=== PATIENT | female | born 1990 | race African-American/Black ===

== ENCOUNTER 2019-08-14 13:49 | Inpatient (IN) | payer SELFPAY ==
[~2019-08-14] VITALS: Ht 172.7 cm; Wt 60.9 kg
[2019-08-14] MEDS ORDERED: IV NORMAL SALINE 1,000ML 1,000 ML IV ONE (14:15)
[2019-08-14] MEDS ORDERED: ACETAMINOPHEN 500 MG TABLET PO ONE (14:30)
--- NOTE | 2019-08-14 14:31 | PHYS DOC ---
Past History Past Medical History: No Pertinent History Past Surgical History: No Surgical History Smoking: Cigarettes Alcohol Use: None Drug Use: None Adult General Chief Complaint Chief Complaint: FLANK PAIN HPI HPI Patient is a 29-year-old female with right flank pain and fever that started yesterday. No relief with home treatment. Discomfort has been moderate in intensity but getting worse over time. Patient denies any dysuria or hematuria, no increased urgency or frequency. No sick contacts, no nausea or vomiting or diarrhea. No increased discomfort with movement. No vaginal bleeding or discharge.[] Review of Systems Review of Systems Constitutional: Denies fever or chills [] Eyes: Denies change in visual acuity, redness, or eye pain [] HENT: Denies nasal congestion or sore throat [] Respiratory: Denies cough or shortness of breath [] Cardiovascular: No chest pain or palpitations[] GI: Denies abdominal pain, nausea, vomiting, bloody stools or diarrhea [] : Denies dysuria or hematuria [] Musculoskeletal: See history of present illness[] Integument: Denies rash or skin lesions [] Neurologic: Denies headache, focal weakness or sensory changes [] Endocrine: Denies polyuria or polydipsia [] All other systems were reviewed and found to be within normal limits, except as documented in this note. Current Medications Current Medications Current Medications Medications (Trade) Dose Ordered Sig/Saroj Start Time Stop Time Status Last Admin Dose Admin Acetaminophen (Tylenol) 500 mg 1X ONCE 08/14/19 14:30 08/14/19 14:31 Sodium Chloride 1,000 ml @ 1,000 mls/hr 1X ONCE 08/14/19 14:15 08/14/19 15:14 Allergies Allergies Allergies Coded Allergies Type Severity Reaction Last Updated Verified No Known Drug Allergies 08/14/19 No Physical Exam Physical Exam Constitutional: Well developed, well nourished, no acute distress, non-toxic appearance. [] HENT: Normocephalic, atraumatic, bilateral external ears normal, oropharynx moist, no oral exudates, nose normal. [] Eyes: PERRLA, EOMI, conjunctiva normal, no discharge. [] Neck: Normal range of motion, no tenderness, supple, no stridor. [] Cardiovascular:Heart rate is tachycardic with a regular rhythm, no murmur [] Lungs & Thorax: Bilateral breath sounds clear to auscultation [] Abdomen: Bowel sounds normal, soft, no tenderness, no masses, able to sit up and lie back without any difficulty, no rebound, no guarding, no rigidity, no pulsatile masses. [] Skin: Warm, dry, no erythema, no rash. [] Back: No tenderness, I'll write CVA tenderness. [] Extremities: No tenderness, no cyanosis, no clubbing, ROM intact, no edema. [] Neurologic: Alert and oriented X 3, normal motor function, normal sensory function, no focal deficits noted. [] Psychologic: Affect normal, judgement normal, mood normal. [] EKG EKG [] Radiology/Procedures Radiology/Procedures PROCEDURE: CT ABDOMEN PELVIS WO CONTRAST Examination: CT of the abdomen pelvis without contrast HISTORY: History of right flank pain COMPARISON: None available TECHNIQUE: Axial CT images of the abdomen pelvis were performed without contrast. Coronal and sagittal reformats are performed. Exposure: One or more of the following individualized dose reduction techniques were utilized for this examination: 1. Automated exposure control 2. Adjustment of the mA and/or kV according to patient size 3. Use of iterative reconstruction technique FINDINGS: The bibasilar lungs are clear. No evidence of free air identified in the abdomen. The evaluation of the solid organs is limited due to lack of IV contrast. The evaluation of bowel is limited due to lack of oral contrast. The visualized noncontrasted liver, spleen, adrenals grossly appears unremarkable. The gallbladder is mildly distended. The stomach is mildly distended. The small bowel is nondilated. The appendix is normal. Feces and gas noted in the colon. There is mild fat stranding identified about the right kidney and the right ureter with mild prominent right renal pelvis likely mild hydronephrosis. Obvious radiopaque calculus is not evident. Evaluation of the right ureter is limited due to bowel in the region and due to pelvic phleboliths. Urinary bladder is mildly distended No evidence of lytic bony destructive lesion IMPRESSION: 1. Mild fat stranding identified about the right kidney and the right ureter with probable mild hydronephrosis could be secondary to pyelonephritis. Correlate with lab values. A radiopaque calculus is not clearly evident however evaluation limited due to bowel and due to calcified pelvic phleboliths.[] Course & Med Decision Making Course & Med Decision Making Pertinent Labs and Imaging studies reviewed. (See chart for details) ED course: Patient arrived, was placed in bed, and tolerated exam well. Patient was given IV fluids and antipyretics initially, and her temperature and heart rate in increased despite these interventions. IV antibiotics were started, consultation was made with the hospitalist service. A CT scan was obtained to ensure there was no infected stone. She was admitted in improved condition. Findings were discussed with the patient. All questions were answered. Medical decision making: Patient appears to have pyelonephritis. No evidence of an obstructing stone. No evidence of renal failure. She is being admitted for further evaluation and treatment.[] Dragon Disclaimer Dragon Disclaimer This electronic medical record was generated, in whole or in part, using a voice recognition dictation system. Departure Departure: Impression: Primary Impression: Pyelonephritis of right kidney Disposition: ADMITTED INPATIENT Admitting Physician: Preet Keith Condition: IMPROVED Referrals: [facility] (PCP) ELIUD STEWART DO Aug 14, 2019 14:31
[2019-08-14 14:43] LABS: BASO # 0.1 x10^3/uL (0.0-0.2); BASO % 1 % (0-3); EOS % 0 % (0-3); HEMATOCRIT 43.1 % (36.0-47.0); HEMOGLOBIN 14.4 g/dL (12.0-15.5); LYMPH # 1.7 x10^3/uL (1.0-4.8); LYMPH % 9 % (24-48); MEAN CORPUSCULAR HEMOGLOBIN 28 pg (25-35); MEAN CORPUSCULAR HGB CONC 33 g/dL (31-37); MEAN CORPUSCULAR VOLUME 85 fL (79-100); MONO # 1.7 x10^3/uL (0.0-1.1); MONO % 9 % (0-9); NEUT # 15.5 x10^3uL (1.8-7.7); NEUT % 82 % (31-73); PLATELET COUNT 267 x10^3/uL (140-400); RED BLOOD COUNT 5.05 x10^6/uL (3.50-5.40); RED CELL DISTRIBUTION WIDTH 16.3 % (11.5-14.5)
[2019-08-14 14:53] LABS: CLARITY,URINE CLOUDY; COLOR,URINE YELLOW
[2019-08-14 14:54] LABS: ALBUMIN 3.8 g/dL (3.4-5.0); ALBUMIN/GLOBULIN RATIO 0.8 (1.0-1.7); CALCIUM 9.4 mg/dL (8.5-10.1); GFR 79.9; TOTAL BILIRUBIN 0.7 mg/dL (0.2-1.0); TOTAL PROTEIN 8.5 g/dL (6.4-8.2)
[2019-08-14 14:54] LABS: BACTERIA,URINE MANY /HPF (0-FEW); BILIRUBIN,URINE NEG (NEG); GLUCOSE,URINE NEG (NEG); NITRITE,URINE POS (NEG); SQUAMOUS EPITHELIAL CELL,UR MANY /LPF; UROBILINOGEN,URINE 0.2 mg/dL (0.2 mg/dL); WBC,URINE >40 /HPF (0-4)
[2019-08-14] MEDS ORDERED: cefTRIAXone SODIUM 1 GM VIAL ONE (15:28)
[2019-08-14] MEDS ORDERED: IV NORMAL SALINE 50ML 50 ML ONE (15:28)
[2019-08-14] MEDS ORDERED: KETOROLAC 15 MG/ML VIAL. IV ONE (16:00)
--- NOTE | 2019-08-14 16:18 | RAD ---
Examination: CT of the abdomen pelvis without contrast HISTORY: History of right flank pain COMPARISON: None available TECHNIQUE: Axial CT images of the abdomen pelvis were performed without contrast. Coronal and sagittal reformats are performed. Exposure: One or more of the following individualized dose reduction techniques were utilized for this examination: 1. Automated exposure control 2. Adjustment of the mA and/or kV according to patient size 3. Use of iterative reconstruction technique FINDINGS: The bibasilar lungs are clear. No evidence of free air identified in the abdomen. The evaluation of the solid organs is limited due to lack of IV contrast. The evaluation of bowel is limited due to lack of oral contrast. The visualized noncontrasted liver, spleen, adrenals grossly appears unremarkable. The gallbladder is mildly distended. The stomach is mildly distended. The small bowel is nondilated. The appendix is normal. Feces and gas noted in the colon. There is mild fat stranding identified about the right kidney and the right ureter with mild prominent right renal pelvis likely mild hydronephrosis. Obvious radiopaque calculus is not evident. Evaluation of the right ureter is limited due to bowel in the region and due to pelvic phleboliths. Urinary bladder is mildly distended No evidence of lytic bony destructive lesion IMPRESSION: 1. Mild fat stranding identified about the right kidney and the right ureter with probable mild hydronephrosis could be secondary to pyelonephritis. Correlate with lab values. A radiopaque calculus is not clearly evident however evaluation limited due to bowel and due to calcified pelvic phleboliths. Electronically signed by: Ramos Meyesr MD (08/14/2019 4:15 PM) [place] [id number]
[2019-08-14] MEDS: IV NORMAL SALINE 1,000ML 1,000 ML IV SCH (16:30)
[2019-08-14] MEDS ORDERED: ONDANSETRON PF 4 MG/2 ML VIAL. IV PRN (17:00)
[2019-08-14 17:57] VITALS: BP 100/65
--- NOTE | 2019-08-14 18:12 | HP ---
ADMIT DATE: 08/14/2019 HISTORY OF PRESENT ILLNESS: The patient is a 29-year-old female patient who came to the Emergency Room complaining of fever and right flank pain that started yesterday. The discomfort has been moderate in intensity, but getting worse over time. Denied any dysuria, hematuria, frequency or urgency. When she arrived to the Emergency Room, she was febrile with temperature of 102, has risen further to 103. Lab work showed that he has leukocytosis with a white cell count of 19,000. She has hyponatremia and her lactic acid was only 1.4; however, urinalysis showed the urine was yellow, cloudy. There was more than 40 wbc's and too many bacteria and therefore has had a CT scan of the abdomen and pelvis, which basically showed mild fat stranding identified about the right kidney and right ureter with probable mild hydronephrosis, could be secondary to pyelonephritis. Radiopaque calculus is not clearly evident; however, evaluation is limited due to bowel and due to calcified pelvic phleboliths. The patient was treated with IV fluid as well as IV ceftriaxone and was admitted to continue with the IV fluid, IV antibiotic and for pain management. PAST MEDICAL HISTORY: Unremarkable. PAST SURGICAL HISTORY: Unremarkable. She apparently has an episode of pyelonephritis about 2 years ago that required admission to the hospital; however, she has no history of nephrolithiasis. ALLERGIES: She has no known drug allergies. MEDICATIONS: She is currently on no medication by prescription otherwise. FAMILY HISTORY: She has 3 sisters who are older and all healthy. Father still alive and healthy. Mother at age of 43 but does not know the cause of her . SOCIAL HISTORY: She is , has 1 son. She smokes a pack a day, does not drink alcohol or use recreational drugs. Currently unemployed. REVIEW OF SYSTEMS: Denied any blurring of vision, cataract, glaucoma or macular degeneration. Denied any earache, tinnitus or sensorineural deafness. Denied any nosebleeds, stuffy nose or postnasal drip. Denied any sore throat, sore tongue, toothache, hoarseness of voice or difficulty swallowing. Denied any nausea, vomiting, diarrhea or constipation. Denied any hematemesis, melena or hematochezia. Denied any dysuria, frequency or hematuria. Denied any chest pain, shortness of breath, orthopnea, paroxysmal nocturnal dyspnea. Denied any cough, phlegm or hemoptysis. PHYSICAL EXAMINATION: GENERAL: On arrival to the Emergency Room, she looked well and was clearly in no apparent respiratory distress. No pallor, jaundice, cyanosis, or thyromegaly. No jugular venous distension. No lower limb edema. VITAL SIGNS: Her heart rate was 119, blood pressure was 102/54, temperature was 103, respiratory rate was 16, and oxygen saturation 100% on room air. HEAD, EYES, EARS, NOSE AND THROAT: Showed normocephalic, atraumatic. NECK: Supple. HEART: Showed normal first and second heart sounds. No gallop, rub or murmur. CHEST: Clear to auscultation. No crepitation or rhonchi. ABDOMEN: Distended, soft, nontender. No guarding or rigidity. No organomegaly. All hernial orifice intact. Bowel sounds normal. There is slight tenderness mostly in the costophrenic angle on the right side. NEUROLOGIC: She is awake, alert, responding appropriately. All cranial nerves intact. EXTREMITIES: She moves extremities without difficulty. She ambulates without assistance or assistive devices. LABORATORY DATA: Her white cell count was 19,000, hemoglobin 14.4, hematocrit 43, MCV 85, platelet count 267,000 with manual differential of 82% polymorphs, 9% lymphocytes and 9% monocytes. Her chemistry showed a serum sodium 130, potassium 4, chloride 92, bicarbonate 28, anion gap of 10, BUN 11, creatinine 1, estimated GFR was 80 mL per minute, her glucose was 117. Lactic acid was 1.4, calcium was 9.4. Total bilirubin, AST, ALT, alkaline phosphatase are all normal except ALT. Her total protein was 8.5, albumin was 3.8. Her urinalysis showed it was negative for urine test. The urine was positive for nitrite. There was moderate amount of leukocyte esterase and there were only 3-5 rbc's and more than 40 wbc's and too many bacteria. Again, CT scan of the abdomen showed mild fat stranding identified about the right kidney and right ureter with probable mild hydronephrosis, could be secondary to pyelonephritis, correlate with lab panel, radiopaque calculus is not clearly evident; however, evaluation is limited due to bowel and due to calcified pelvic phleboliths. PLAN: To continue with IV antibiotics. Continue with IV fluids and pain management. Continue with Tylenol for fever. I will repeat all her lab work and once we have the culture and sensitivity, we will adjust antibiotics accordingly. ALLISON ARNOLD MD DR: CHITO/spencer JOB#: [id number] / [id number]
[2019-08-14] MEDS: MORPHINE SULFATE 4 MG/ML DISP.SYRIN. IV PRN ×2 (18:17→22:57)
[2019-08-14 19:27] VITALS: BP 122/72
[2019-08-14 20:01] LABS: % BANDS 1 % (0-9); % LYMPHS 11 % (24-48); % MONOS 8 % (0-10); % SEGS 80 % (35-66)
[2019-08-14 20:02] LABS: PLT ESTIMATE ADEQUATE (ADEQUATE)
[2019-08-14] MEDS: ACETAMINOPHEN 325 MG TABLET PO PRN (21:11)
[2019-08-14] MEDS: LACTOBACILLUS RHAMNOSUS GG 1 CAPSULE. PO SCH (21:11)
[2019-08-14 22:16] VITALS: BP 114/77
[2019-08-15] MEDS: IV NORMAL SALINE 1,000ML 1,000 ML IV SCH (01:00)
[2019-08-15 05:29] VITALS: BP 110/57
[2019-08-15] MEDS: ACETAMINOPHEN 325 MG TABLET PO PRN (06:04)
[2019-08-15 06:25] LABS: HEMATOCRIT 35.5 % (36.0-47.0); HEMOGLOBIN 11.5 g/dL (12.0-15.5); RED BLOOD COUNT 4.08 x10^6/uL (3.50-5.40); RED CELL DISTRIBUTION WIDTH 16.1 % (11.5-14.5)
[2019-08-15 06:40] LABS: ALBUMIN 2.7 g/dL (3.4-5.0); ALBUMIN/GLOBULIN RATIO 0.7 (1.0-1.7); CREATININE 0.8 mg/dL (0.6-1.0); GFR 103.3; TOTAL BILIRUBIN 0.4 mg/dL (0.2-1.0); TOTAL PROTEIN 6.4 g/dL (6.4-8.2)
[2019-08-15] MEDS: MORPHINE SULFATE 4 MG/ML DISP.SYRIN. IV PRN ×4 (07:22→23:24)
[2019-08-15] MEDS: LACTOBACILLUS RHAMNOSUS GG 1 CAPSULE. PO SCH ×2 (10:31→21:14)
[2019-08-15 10:44] VITALS: BP 94/57
[2019-08-15] MEDS: NICOTINE 14MG PATCH. TD SCH (14:43)
[2019-08-15 14:57] VITALS: BP 100/66
[2019-08-15] MEDS ORDERED: ACETAMINOPHEN 325 MG TABLET PO PRN (18:30)
[2019-08-15 18:45] VITALS: BP 127/80
--- NOTE | 2019-08-16 00:20 | PN ---
DATE: 08/15/2019 CHIEF COMPLAINT: Flank pain. SUBJECTIVE: The patient is alert. She feels better. She is not nauseated. The pain is controlled with p.r.n. morphine. OBJECTIVE FINDINGS: VITAL SIGNS: Her blood pressure today is 110/57. Her maximal temperature was 102.5 degrees Fahrenheit at 0530 hours this morning. She is afebrile now. Her pulse is 92 and regular. HEENT: Head is without trauma. Pupils are reactive. Sclerae nonicteric. Oropharynx clear. NECK: Supple. No bruits. LUNGS: Otherwise clear. CARDIOVASCULAR: Showed regular heart tones. No obvious gallops. There is a very soft, grade 1/6 systolic ejection murmur, very early and systolic, best heard at the left sternal border. Peripheral pulses are palpable and full. ABDOMEN: Soft, scaphoid, nontender. Minimal flank tenderness on the right. EXTREMITIES: Showed no cyanosis or edema. NEUROLOGIC: Focally intact. Speech is fluent. Criminal Justice Instructor intact. LABORATORY STUDIES: Repeat CBC today showed a hemoglobin of 11.5 g/dL, the decline is hemodilutional. The white count is down to 13,000. Lactate level is trending downwards. Chemistry panel is unremarkable. Creatinine is 0.8 mg/dL. CT scan reviewed. ASSESSMENT: 1. A 29-year-old female with right pyelonephritis. 2. Fever related to illness. 3. Leukocytosis, improving. PLAN: 1. Continue Rocephin as ordered. 2. Cultures are still pending, I do not have any positive reports yet. 3. We can discontinue the IV fluids. 4. Diet as tolerated. 5. If symptoms improve, she can be discharged as early as tomorrow morning. RAMON TERRY MD DR: ELBERT/spencer JOB#: [id number] / [id number]
[2019-08-16 05:50] VITALS: BP 101/63
[2019-08-16] MEDS ORDERED: CEPH500C PO (08:45)
[2019-08-16] MEDS: NICOTINE 14MG PATCH. TD SCH (08:59)
[2019-08-16] MEDS: LACTOBACILLUS RHAMNOSUS GG 1 CAPSULE. PO SCH (08:59)
[2019-08-16] MEDS: MORPHINE SULFATE 4 MG/ML DISP.SYRIN. IV PRN (08:59)
--- NOTE | 2019-08-16 12:37 | DS ---
DATE OF DISCHARGE: ATTENDING PHYSICIAN: Dr. Keith. FINAL DISCHARGE DIAGNOSES: 1. Acute pyelonephritis, right. 2. Abdominal pain, resolved. 3. Nausea, resolved. 4. Mild hydronephrosis not clinically relevant. HISTORY OF PRESENT ILLNESS: This is a 29-year-old female complaining of fever, right flank pain 1 day duration. She has dysuria, no hematuria, temperature 103 degrees Fahrenheit. White count was elevated. Urine was cloudy. A CT of the abdomen showed no evidence of calculus. She did have stranding and early evidence of right-sided pyelonephritis. There is no history of nephrolithiasis. She is not on any prescription medicines. She is otherwise healthy. She is a smoker. PHYSICAL EXAMINATION: Please see the dictated note. PERTINENT LABORATORY AND X-RAY STUDIES: Admission hemoglobin was 14.4 mg/dL. White count 19,000 and repeated next day for followup, hemodilutional changes. Hemoglobin is down to 11.5 g/dL. White count diminished at 13,000. Chemistry panel showed sodium of 134 mEq, creatinine 0.8 mg percent. Transaminases slightly elevated with AST of 39, ALT of 79. Bilirubin was normal. COURSE IN HOSPITAL: The patient was admitted. She was started on empiric Rocephin receiving 3 days. Pain was managed with p.r.n. meds and nausea control. Diet was advanced. Blood cultures were negative at 48 hours. I did not see any results of urine cultures whether this was drawn or not. The patient's exam was unremarkable. By the third hospital day, her vital signs are quite stable. She had fevers on the second day, but she was afebrile with a temperature 98.2, blood pressure is adequate. Respirations were normal. Lungs were clear. Abdomen was soft and pain was controlled. She was ready for discharge. I recommended 7 more days of cephalexin 500 mg p.o. t.i.d., Lortab 7.5 one p.o. q. 6 hours p.r.n. pain, total 24 given with no refills. No other prescription meds. She is instructed to follow up with her PCP as scheduled. The patient was then discharged from our hospital in stable condition with explicit instructions and followup care. TOTAL DISCHARGE TIME SPENT: 38 minutes. RAMON TERRY MD DR: ELBERT/spencer JOB#: [id number] / [id number] ALLISON Livingston MD
== END 2019-08-16 09:55 | disposition home or self-care (01) | DRG 690 ==
LOC: ER 13:49 → 1 SOUTH 17:16
PROVIDERS: ADMIT Internal Medicine; ATTEND Internal Medicine
DX: N13.6 Pyonephrosis (principal); E87.1 Hypo-osmolality and hyponatremia; F17.210 Nicotine dependence, cigarettes, uncomplicated
CPT/HCPCS: 36415; 74176; 80053; 81001; 81025; 83605; 85007; 85025; 85027; 87040; 87086; 96361; 96365; 96375; J0696; J1885; J2270; 99285-25; J7030

== ENCOUNTER 2019-10-07 20:31 | Emergency (ER) | payer SELFPAY ==
[~2019-10-07] VITALS: Ht 172.7 cm; Wt 58.1 kg
[~2019-10-07 20:31] MED LIST: CEPH500C PO
--- NOTE | 2019-10-07 20:35 | ED.ADGEN ---
Past History Past Medical History: No Pertinent History, UTI, Other Past Surgical History: No Surgical History Smoking: Cigarettes Alcohol Use: None Drug Use: Marijuana Adult General Chief Complaint Chief Complaint " .. I think I am probably having a miscarry.. I had a urine test earlier.. a week or so ago.. and it was questionable.. but now I am bleeding... " [facility] HPI Patient is a 29 year old female who presents with above hx and complaints of patient bleeding as if she is having a period. Patient has not had a period since July. Patient states the home test was intermittent as if she might be possibly . No history of STDs. No history of trauma. No history of vaginal discharge except the bleeding. No history of dysuria. Patient does have a history of pyelonephritis. No recent travel or specific ill contacts. No history immunosuppression. Patient has been previously and had vaginal delivery. Review of Systems Review of Systems Constitutional: Denies fever or chills [] Eyes: Denies change in visual acuity, redness, or eye pain [] HENT: Denies nasal congestion or sore throat [] Respiratory: Denies cough or shortness of breath [] Cardiovascular: No additional information not addressed in HPI [] GI: Complaints of some generalized abdomen cramping and vaginal bleeding,. She denies, nausea, vomiting, bloody stools or diarrhea [] : Denies dysuria or hematuria [] Musculoskeletal: Denies back pain or joint pain [] Integument: Denies rash or skin lesions [] Neurologic: Denies headache, focal weakness or sensory changes [] Endocrine: Denies polyuria or polydipsia [] All other systems were reviewed and found to be within normal limits, except as documented in this note. Family History Family History Noncontributory Current Medications Current Medications Current Medications Medications (Trade) Dose Ordered Sig/Saroj Start Time Stop Time Status Last Admin Dose Admin Lactated Ringer's 1,000 ml @ 1,000 mls/hr Q1H 10/07/19 20:36 10/07/19 21:35 DC 10/07/19 20:36 1,000 MLS/HR Allergies Allergies Allergies Coded Allergies Type Severity Reaction Last Updated Verified No Known Drug Allergies 08/14/19 No Physical Exam Physical Exam Constitutional: Moderate acute distress, non-toxic appearance. [] HENT: Normocephalic, atraumatic, bilateral external ears normal, oropharynx moist, no oral exudates, nose normal. [] Eyes: PERRLA, EOMI, conjunctiva normal, no discharge. [] Neck: Normal range of motion, no tenderness, supple, no stridor. [] Cardiovascular:Heart rate regular rhythm, no murmur [] Lungs & Thorax: Bilateral breath sounds equal at apexes scattered wheezing on auscultation [] Abdomen: Bowel sounds normal, soft, mild generalized tenderness, no masses, no pulsatile masses. [] Patient declines pelvic exam. No focal rebound. Skin: Warm, dry, no erythema, no rash. Tattoos. Back: No tenderness, no CVA tenderness. [] Extremities: No tenderness, no cyanosis, no clubbing, ROM intact, no edema. No true psoas sign. Neurologic: Alert and oriented X 3, normal motor function, normal sensory function, no focal deficits noted. [] Psychologic: Affect anxious, inpatient, judgement normal, mood normal. [] Current Patient Data Vital Signs Vital Signs Date Time Temp Pulse Resp B/P (MAP) Pulse Ox O2 Delivery O2 Flow Rate FiO2 10/07/19 22:46 85 16 118/77 (91) 100 Room Air 10/07/19 21:15 98.2 Lab Results Laboratory Tests Test 10/07/19 21:13 10/07/19 21:42 White Blood Count 9.8 x10^3/uL (4.0-11.0) Red Blood Count 3.99 x10^6/uL (3.50-5.40) Hemoglobin 11.5 g/dL (12.0-15.5) L Hematocrit 34.7 % (36.0-47.0) L Mean Corpuscular Volume 87 fL (79-100) Mean Corpuscular Hemoglobin 29 pg (25-35) Mean Corpuscular Hemoglobin Concent 33 g/dL (31-37) Red Cell Distribution Width 14.8 % (11.5-14.5) H Platelet Count 332 x10^3/uL (140-400) Neutrophils (%) (Auto) 68 % (31-73) Lymphocytes (%) (Auto) 22 % (24-48) L Monocytes (%) (Auto) 9 % (0-9) Eosinophils (%) (Auto) 1 % (0-3) Basophils (%) (Auto) 0 % (0-3) Neutrophils # (Auto) 6.7 x10^3uL (1.8-7.7) Lymphocytes # (Auto) 2.1 x10^3/uL (1.0-4.8) Monocytes # (Auto) 0.9 x10^3/uL (0.0-1.1) Eosinophils # (Auto) 0.1 x10^3/uL (0.0-0.7) Basophils # (Auto) 0.0 x10^3/uL (0.0-0.2) Prothrombin Time 9.6 SEC (9.4-11.4) Prothrombin Time INR 0.9 (0.9-1.1) Activated Partial Thromboplast Time 31 SEC (23-33) Maternal Serum HCG Beta Subunit 8595 mIU/mL (0-6) H Sodium Level 137 mmol/L (136-145) Potassium Level 3.2 mmol/L (3.5-5.1) L Chloride Level 100 mmol/L (98-107) Carbon Dioxide Level 26 mmol/L (21-32) Anion Gap 11 (6-14) Blood Urea Nitrogen 13 mg/dL (7-20) Creatinine 0.6 mg/dL (0.6-1.0) Estimated GFR (Cockcroft-Gault) 119.0 Glucose Level 89 mg/dL (70-99) Calcium Level 8.8 mg/dL (8.5-10.1) Total Bilirubin 0.5 mg/dL (0.2-1.0) Direct Bilirubin 0.1 mg/dL (0.0-0.2) Aspartate Amino Transferase (AST) 42 U/L (15-37) H Alanine Aminotransferase (ALT) 61 U/L (14-59) H Alkaline Phosphatase 64 U/L (46-116) Total Protein 7.2 g/dL (6.4-8.2) Albumin 3.2 g/dL (3.4-5.0) L Urine Collection Type Unknown Urine Color Yellow Urine Clarity Hazy Urine pH 6.0 Urine Specific [place] 1.020 Urine Protein 30 mg/dl (NEG-TRACE) Urine Glucose (UA) Neg mg/dL (NEG) Urine Ketones (Stick) 15 mg/dL (NEG) Urine Blood Mod (NEG) Urine Nitrite Neg (NEG) Urine Bilirubin Neg (NEG) Urine Urobilinogen Dipstick 0.2 mg/dL (0.2 mg/dL) Urine Leukocyte Esterase Trace (NEG) Urine RBC 6-10 /HPF (0-2) Urine WBC 11-20 /HPF (0-4) Urine Squamous Epithelial Cells Few /LPF Urine Bacteria Few /HPF (0-FEW) Urine Mucus Slight /LPF Urine Test Positive (NEG) Urine Opiates Screen Neg (NEG) Urine Methadone Screen Neg (NEG) Urine Barbiturates Neg (NEG) Urine Phencyclidine Screen Neg (NEG) Urine Amphetamine/Methamphetamine Pos (NEG) Urine Benzodiazepines Screen Neg (NEG) Urine Cocaine Screen Neg (NEG) Urine Cannabinoids Screen Pos (NEG) Urine Ethyl Alcohol Neg (NEG) EKG EKG [] Radiology/Procedures Radiology/Procedures Patient refuses ultrasound[] Course & Med Decision Making Course & Med Decision Making Pertinent Labs and Imaging studies reviewed. (See chart for details) In process pt work up, decided she did not want a pelvic exam or US or repeat lab draw. Did not want to wait for any labs including Type/rH . Demanded to be discharge. States she with follow up later. Patient did not want to wait around for her labs. Patient refused redraw for blood type. Patient encouraged to start vitamin. Patient encouraged follow-up with RO[employer]. Patient to continue pad counts. Patient return any time. Patient take only Tylenol for pain. Patient encouraged not to smoke or use illicit drugs occluding marijuana. Patient exhibits UCAR capacity. [] Final Impression Final Impression 1. Threaten [] 2. Tobacco use 3. Possible drug screen for methamphetamine and marijuana 4. Anemia hemoglobin 11.5 5. Beta hCG 8595 Dragon Disclaimer Dragon Disclaimer This electronic medical record was generated, in whole or in part, using a voice recognition dictation system. Dragon Disclaimer This chart was dictated in whole or in part using Voice Recognition software in a busy, high-work load, and often noisy Emergency Department environment. It may contain unintended and wholly unrecognized errors or omissions. JACK SYED MD Oct 07, 2019 20:35
[2019-10-07] MEDS ORDERED: IV RINGERS SOLUTION,LACTATED 1,000 ML IV SCH (20:36)
[2019-10-07 21:38] LABS: BASO % 0 % (0-3); EOS # 0.1 x10^3/uL (0.0-0.7); EOS % 1 % (0-3); HEMATOCRIT 34.7 % (36.0-47.0); HEMOGLOBIN 11.5 g/dL (12.0-15.5); LYMPH # 2.1 x10^3/uL (1.0-4.8); LYMPH % 22 % (24-48); MEAN CORPUSCULAR HEMOGLOBIN 29 pg (25-35); MEAN CORPUSCULAR HGB CONC 33 g/dL (31-37); MEAN CORPUSCULAR VOLUME 87 fL (79-100); MONO # 0.9 x10^3/uL (0.0-1.1); MONO % 9 % (0-9); NEUT # 6.7 x10^3uL (1.8-7.7); NEUT % 68 % (31-73); PLATELET COUNT 332 x10^3/uL (140-400); RED BLOOD COUNT 3.99 x10^6/uL (3.50-5.40); RED CELL DISTRIBUTION WIDTH 14.8 % (11.5-14.5); WHITE BLOOD COUNT 9.8 x10^3/uL (4.0-11.0)
[2019-10-07 21:41] LABS: ALBUMIN 3.2 g/dL (3.4-5.0); CALCIUM 8.8 mg/dL (8.5-10.1); CREATININE 0.6 mg/dL (0.6-1.0); DIRECT BILIRUBIN 0.1 mg/dL (0.0-0.2); POTASSIUM 3.2 mmol/L (3.5-5.1); TOTAL BILIRUBIN 0.5 mg/dL (0.2-1.0); TOTAL PROTEIN 7.2 g/dL (6.4-8.2)
[2019-10-07 22:10] LABS: AMPHETAMINE/METHAMPHETAMINE POS (NEG); BARBITURATES NEG (NEG); BENZODIAZEPINES NEG (NEG); CANNABINOIDS POS (NEG); COCAINE NEG (NEG); METHADONE NEG (NEG); OPIATES NEG (NEG); PHENCYCLIDINE NEG (NEG)
[2019-10-07 22:11] LABS: BILIRUBIN,URINE NEG (NEG); CLARITY,URINE HAZY; COLOR,URINE YELLOW; GLUCOSE,URINE NEG (NEG)
[2019-10-07 22:12] LABS: NITRITE,URINE NEG (NEG); UROBILINOGEN,URINE 0.2 mg/dL (0.2 mg/dL)
[2019-10-07 22:13] LABS: BACTERIA,URINE FEW /HPF (0-FEW); SQUAMOUS EPITHELIAL CELL,UR FEW /LPF
[2019-10-07 22:17] LABS: U PREG PATIENT POSITIVE (NEG)
[2019-10-07 22:46] VITALS: BP 118/77
[2019-10-11 12:07] LABS: HCV ULTRA QUANT PCR 483000 IU/mL (.)
== END 2019-10-07 22:52 | disposition home or self-care (01) ==
LOC: ER 20:31
DX: O20.0 Threatened abortion (principal); O99.011 Anemia complicating pregnancy, first trimester; O99.331 Smoking (tobacco) complicating pregnancy, first trimester; O23.41 Unspecified infection of urinary tract in pregnancy, first trimester; Z3A.00 Weeks of gestation of pregnancy not specified
CPT/HCPCS: 36415; 80048; 80076; 80307; 81001; 81025; 84443; 84702; 85025; 85610; 85730; 86592; 86703; 86705; 86709; 86803; 87086; 87186; 87340; 87521; 99284; J7120; 99285-25

== ENCOUNTER → 2019-10-20 16:55 | Emergency (ER) | payer SELFPAY ==
[2019-10-07 22:46] VITALS: BP 118/77
== END | disposition left against medical advice (07) ==
LOC: ER 16:55
DX: R30.0 Dysuria (principal); Z53.21 Procedure and treatment not carried out due to patient leaving prior to being seen by health care provider

== ENCOUNTER 2021-06-13 18:44 | Emergency (ER) | payer SELFPAY ==
[~2021-06-13] VITALS: Ht 172.7 cm; Wt 52.4 kg
--- NOTE | 2021-06-13 19:40 | PHYS DOC ---
Past History Past Medical History: No Pertinent History, UTI, Other Past Surgical History: No Surgical History Smoking: Cigarettes Alcohol Use: Occasionally Drug Use: Marijuana General Adult EDM: Chief Complaint: FLANK PAIN HPI: HPI: Patient is a 30 year old female who presents with back pain that began on . She described her pain as a kidney infection, and says it happened once before last year. The pain is bilateral but more on the left. Pain is constant but worsens with movement. Nothing improves. Pt reports headache and "tingling" with urination. Pain 8/10. Review of Systems: Review of Systems: Constitutional: Denies fever or chills Eyes: Denies redness or eye pain HENT: Denies nasal congestion or sore throat Respiratory: Denies cough or shortness of breath Cardiovascular: Denies chest pain or palpitations GI: Denies abdominal pain, nausea, or vomiting : Reports dysuria. Denies hematuria Musculoskeletal: Reports back pain. Denies joint pain Integument: Denies rash or skin lesions Neurologic: Reports headache. Denies focal weakness or sensory changes Complete systems were reviewed and found to be within normal limits, except as documented in this note. Allergies: Allergies: Allergies Coded Allergies Type Severity Reaction Last Updated Verified No Known Drug Allergies 08/14/19 No Physical Exam: PE: Constitutional: Well developed, well nourished, no acute distress, non-toxic appearance HENT: Normocephalic, atraumatic Eyes: EOMI, conjunctiva normal, no discharge Neck: Normal range of motion, no tenderness, supple Lungs & Thorax: No respiratory distress, equal chest rise and fall. Clear to auscultation. Cardiovascular: Abdomen: Soft, no tenderness Skin: Warm, dry, no erythema, no rash Back: No tenderness, no CVA tenderness Extremities: No tenderness, ROM intact, no edema Neurologic: Alert and oriented X 3, normal motor function, normal sensory function, no focal deficits noted Psychologic: Affect normal, judgment normal Current Patient Data: Labs: Laboratory Tests Test 06/13/21 19:24 POC Urine HCG, Qualitative hcg negative (Negative) Vital Signs: Vital Signs Date Time Temp Pulse Resp B/P (MAP) Pulse Ox O2 Delivery O2 Flow Rate FiO2 06/13/21 18:59 99.7 117 16 102/49 (66) 98 Room Air EKG: EKG: [] Radiology/Procedures: Radiology/Procedures: PROCEDURE: CT ABDOMEN PELVIS WO CONTRAST CT ABDOMEN+PELVIS WO History: Flank pain. Evaluate for ureteral calculi Comparison: CT abdomen pelvis 08/14/2019. Technique: Noncontrast CT of the abdomen and pelvis. Findings: Examination is limited by noncontrast technique. Lung bases are clear. Liver, gallbladder, pancreas, spleen and adrenal glands are unremarkable. There is slight increased density of the medullary pyramids. Punctate calcifications in the bilateral compatible with nephroliths. No hydronephrosis. No ureteral stone identified. There are calcifications in the pelvis which appear to be stable phleboliths. The uterus is unremarkable. No free fluid or free air. The nonopacified stomach and small bowel are unremarkable. The colon is within normal limits. Soft tissues and osseous structures are unremarkable. Impression: 1. Bilateral punctate nephrolithiasis. No hydronephrosis, hydroureter or ureterolithiasis identified. ------ Exposure: One or more of the following individualized dose reduction techniques were utilized for this examination: 1. Automated exposure control 2. Adjustment of the mA and/or kV according to patient size 3. Use of iterative reconstruction technique. Electronically signed by: Ricky Chavarria MD (06/13/2021 8:06 PM) [facility] Heart Score: C/O Chest Pain: N/A Course & Med Decision Making: Course & Med Decision Making Pertinent Labs and Imaging studies reviewed. (See chart for details) Pt presents with bilateral back pain that is worse on the left that started Saturday. Pt had a similar episode last year. Pt reports "tingling" with urination. Ordered CBC, chem, UA, lactate. CT discovered no stones nor hydronephrosis. WBC elevated suggesting pyelonephritis. Prescribed Rocephan and tramadol. Patient stable for discharge with outpatient follow-up with PCP. Discussed findings and plan with patient, who acknowledges understanding and agreement. Og Disclaimer: Og Disclaimer: This electronic medical record was generated, in whole or in part, using a voice recognition dictation system. Departure Departure: Impression: Primary Impression: Pyelonephritis Disposition: HOME / SELF CARE / HOMELESS Condition: STABLE Referrals: PCP,NO (PCP) Patient Instructions: Pyelonephritis, Adult, [id number] Additional Instructions: Increase fluid hydration. Take [id number] ibuprofen and or Tylenol for pain or discomfort. Scripts Cephalexin (CEPHALEXIN) 500 Mg Capsule 1 CAP PO TID for Kidney infection for 7 Days, #21 CAP Prov: ELIZABETH AMES DO 06/13/21 Phenazopyridine Hcl (PYRIDIUM) 200 Mg Tablet 200 MG PO TID for urinary tract infection for 2 Days, #6 TAB Prov: ELIZABETH AMES DO 06/13/21 ELIZABETH AMES DO Jun 13, 2021 19:40
[2021-06-13 19:45] LABS: BASO # 0.1 x10^3/uL (0.0-0.2); BASO % 1 % (0-3); EOS % 0 % (0-3); HEMATOCRIT 42.6 % (36.0-47.0); HEMOGLOBIN 14.5 g/dL (12.0-15.5); LYMPH # 1.9 x10^3/uL (1.0-4.8); LYMPH % 10 % (24-48); MEAN CORPUSCULAR HEMOGLOBIN 30 pg (25-35); MEAN CORPUSCULAR HGB CONC 34 g/dL (31-37); MEAN CORPUSCULAR VOLUME 89 fL (79-100); MONO # 2.3 x10^3/uL (0.0-1.1); MONO % 12 % (0-9); NEUT # 15.3 x10^3uL (1.8-7.7); NEUT % 78 % (31-73); PLATELET COUNT 248 x10^3/uL (140-400); RED BLOOD COUNT 4.78 x10^6/uL (3.50-5.40); RED CELL DISTRIBUTION WIDTH 13.4 % (11.5-14.5); WHITE BLOOD COUNT 19.6 x10^3/uL (4.0-11.0)
[2021-06-13] MEDS ORDERED: KETOROLAC 15 MG/ML VIAL. IVP ONE (19:45)
[2021-06-13] MEDS ORDERED: IV NORMAL SALINE 1,000ML 1,000 ML IV ONE (19:45)
[2021-06-13 20:08] LABS: CALCIUM 8.8 mg/dL (8.5-10.1); CREATININE 0.9 mg/dL (0.6-1.0); POTASSIUM 4.1 mmol/L (3.5-5.1)
--- NOTE | 2021-06-13 20:08 | RAD ---
CT ABDOMEN+PELVIS WO History: Flank pain. Evaluate for ureteral calculi Comparison: CT abdomen pelvis 08/14/2019. Technique: Noncontrast CT of the abdomen and pelvis. Findings: Examination is limited by noncontrast technique. Lung bases are clear. Liver, gallbladder, pancreas, spleen and adrenal glands are unremarkable. There is slight increased density of the medullary pyramids. Punctate calcifications in the bilateral compatible with nephroliths. No hydronephrosis. No ureteral stone identified. There are calcificatio ns in the pelvis which appear to be stable phleboliths. The uterus is unremarkable. No free fluid or free air. The nonopacified stomach and small bowel are u nremarkable. The colon is within normal limits. Soft tissues and osseous structures are unremarkable. Impression: 1. Bilateral punctate nephrolithiasis. No hydronephrosis, hydroureter or ureterolithiasis identified . ------ Exposure: One or more of the following individualized dose reduction techniques were utilized for thi s examination: 1. Automated exposure control 2. Adjustment of the mA and/or kV according to patient size 3. Use of iterative reconstruction technique. Electronically signed by: Ricky Chavarria MD (06/13/2021 8:06 PM) [facility]
[2021-06-13 20:14] LABS: ALBUMIN 3.4 g/dL (3.4-5.0); ALBUMIN/GLOBULIN RATIO 0.9 (1.0-1.7); MAGNESIUM 1.9 mg/dL (1.8-2.4); TOTAL BILIRUBIN 0.6 mg/dL (0.2-1.0); TOTAL PROTEIN 7.2 g/dL (6.4-8.2)
[2021-06-13 20:19] LABS: CLARITY,URINE HAZY; COLOR,URINE YELLOW; GLUCOSE,URINE NEG (NEG)
[2021-06-13 20:20] LABS: BILIRUBIN,URINE NEG (NEG); NITRITE,URINE POS (NEG)
[2021-06-13 20:21] LABS: BACTERIA,URINE MANY /HPF (0-FEW); SQUAMOUS EPITHELIAL CELL,UR FEW /LPF; WBC,URINE TNTC /HPF (0-4)
[2021-06-13] MEDS ORDERED: PHEN-318 PO (20:56)
[2021-06-13] MEDS ORDERED: CEPH500C PO (20:56)
[2021-06-13] MEDS ORDERED: IV NORMAL SALINE 50ML 50 ML ONE (21:06)
[2021-06-13] MEDS ORDERED: cefTRIAXone SODIUM 1 GM VIAL ONE (21:06)
[2021-06-13 21:12] LABS: % ATYL 1 % (0-0); % BANDS 22 % (0-9); % LYMPHS 4 % (24-48); % MONOS 18 % (0-10); % SEGS 55 % (35-66)
[2021-06-13 21:13] LABS: PLT ESTIMATE ADEQUATE (ADEQUATE)
[2021-06-13] MEDS ORDERED: PHENAZOPYRIDINE 200 MG TABLET. PO ONE (21:30)
[2021-06-13 21:43] VITALS: BP 104/54
== END 2021-06-13 21:50 | disposition home or self-care (01) ==
LOC: ER 18:44
DX: N12 Tubulo-interstitial nephritis, not specified as acute or chronic (principal); R51.9 Headache, unspecified; F17.210 Nicotine dependence, cigarettes, uncomplicated; Z87.440 Personal history of urinary (tract) infections
CPT/HCPCS: 36415; 74176; 80053; 81001; 81025; 83605; 83690; 83735; 85007; 85025; 87086; 96361; 96365; 96375; 99284; J0696; J1885; J7030